=== PATIENT | male | born 1980 | race Caucasian/White ===

== ENCOUNTER 2017-05-11 12:07 | Day surgery (SDC) | payer BC ==
[~2017-05-11] VITALS: Ht 193 cm; Wt 108.9 kg
[~2017-05-11 12:07] MED LIST: FENOFIBRATE145 MG PO; FENOGLIDE40 MG PO; PERCOCET 5-3251 EACH PO; PRILOSEC OTC20 MG PO; TOPROL XL50 MG PO
--- NOTE | 2017-05-11 15:23 | NUR ---
05/11/17 1522 Jael Manzano 1516-PATIENT ARRIVED TO PACU ON 3L NC O2 SAT 99% PATIENT AWAKE DENIES PAIN OR NAUSEA. ABDOMEN ROUND AND SOFT ENCOURAGED TO PASS FLATUS. 1521-PATIENT WEANED TO RA O2 SAT 97% AWAKE
--- NOTE | 2017-05-12 10:41 | OR ---
[facility] [address], [place] [address] Signed DATE OF OPERATION: 05/11/2017 SURGEON: Oscar Pantoja MD PREOPERATIVE DIAGNOSIS: Persistent left lower abdominal pain. POSTOPERATIVE DIAGNOSIS: Sigmoid diverticulosis. PROCEDURE: Total colonoscopy to cecum. ANESTHESIA: Intravenous sedation, fentanyl 150 mcg, Versed 10 mg. INDICATION: This 37-year-old, white man is a patient of Dr. Castellano and has had persistent complaints of left lower abdominal pain, occasional loose bowel movement, but no blood per rectum. He has no family history of colon cancer. He is admitted at this time to undergo colonoscopy to better characterize the problem. He understands risks of bleeding, infection, and perforation and wished to proceed. FINDINGS: The prep was excellent. Complete colonoscopy was undertaken to the cecum. There were diverticula of the sigmoid colon. No sign of polyps, colitis, or other abnormalities. The remaining colon and rectum were normal. DESCRIPTION OF PROCEDURE: The patient was brought to the endoscopy suite and placed in lateral decubitus position, given intravenous sedation to the point of slurred speech and nystagmus. Digital rectal examination was normal. An Olympus video colonoscope was passed in the rectum and manipulated throughout the colon. In the sigmoid, diverticula were noted. There was no sign of obstruction or stricture. The scope was advanced beyond this area ultimately to the cecum, which was entirely normal. The ileocecal valve and appendiceal orifice were normal. Once well visualized, the scope was withdrawn from that point. Upon withdrawal of scope, there were no abnormalities noted, specifically, no colitis or polyps only diverticular changes of the sigmoid. Retroflexed view of the rectum was normal. Scope was removed. Electronically Signed By: OSCAR PANTOJA MD 05/12/17 1041 PATIENT NAME: GUILHERME SALAZAR OPERATIVE REPORT DATE OF : 76 PHYSICIAN: OSCAR PANTOJA MD REPORT #: [id number] REPORT IS CONFIDENTIAL AND NOT TO BE RELEASED WITHOUT AUTHORIZATION [facility] [address], [place] [address] Signed The patient was taken to recovery room in good condition. CONCLUDING DIAGNOSIS: Pain in the left lower abdomen probably related to diverticulosis. PLAN: Recommend high-fiber diet at this point. We will see him back in eight weeks and assess his progress. He shows no sign of acute diverticulitis currently. MD MELANY Coreas/SARAI /[id number] cc: Morales Castellano MD Electronically Signed By: OSCAR PANTOJA MD 05/12/17 1041 PATIENT NAME: SALAZAR,GUILHERME BERTRAM OPERATIVE REPORT DATE OF : 76 PHYSICIAN: OSCAR PANTOJA MD REPORT #: [id number] REPORT IS CONFIDENTIAL AND NOT TO BE RELEASED WITHOUT AUTHORIZATION
== END 2017-05-11 15:55 | disposition home or self-care (01) ==
LOC: DS 12:07 → OPS 12:07 → DS 13:00 → OPS 15:55
PROVIDERS: Surgery
PROC: 0DJD8ZZ Inspection of Lower Intestinal Tract, Via Natural or Artificial Opening Endoscopic (ICD-10-PCS; principal; 2017-05-11 13:00)
DX: K57.30 Diverticulosis of large intestine without perforation or abscess without bleeding (principal); K21.9 Gastro-esophageal reflux disease without esophagitis; I10 Essential (primary) hypertension; G47.30 Sleep apnea, unspecified; F17.200 Nicotine dependence, unspecified, uncomplicated; Z98.890 Other specified postprocedural states
CPT/HCPCS: 99153; G0500; J2250; J3010; J7120

== ENCOUNTER 2019-11-23 10:05 | Emergency (ER) | payer OTHER ==
[~2019-11-23] VITALS: Ht 193 cm; Wt 108.9 kg
[2019-11-23] MEDS ORDERED: NAPROXEN500 MG PO (11:39)
[2019-11-23] MEDS ORDERED: LOSARTAN POTASS50 MG PO (11:40)
[2019-11-23] MEDS ORDERED: ATORVASTATIN CA40 MG PO (11:40)
[2019-11-23] MEDS ORDERED: NORCO 7.5-3251 EACH PO (14:45)
== END 2019-11-23 15:06 | disposition home or self-care (01) ==
LOC: ED 10:05
DX: M53.3 Sacrococcygeal disorders, not elsewhere classified (principal); M54.5 Low back pain; K21.9 Gastro-esophageal reflux disease without esophagitis; I10 Essential (primary) hypertension; Z79.899 Other long term (current) drug therapy
CPT/HCPCS: 72158; 99284-25; A9577